=== PATIENT | female | born 1960 | race African-American/Black ===

== ENCOUNTER 2022-09-22 10:50 | Outpatient (REF) | payer OTHER, SELFPAY | END 2022-09-22 10:51 | disposition home or self-care (01) | LOC: HO.LAB 10:50 | PROVIDERS: PCP Internal Medicine; Visit Provider Urology | DX: C67.9 Malignant neoplasm of bladder, unspecified (principal); R31.29 Other microscopic hematuria; F17.200 Nicotine dependence, unspecified, uncomplicated | CPT/HCPCS: 81003 ==

== ENCOUNTER 2022-09-22 10:50 | Outpatient (AMB) | payer OTHER, SELFPAY ==
--- NOTE | 2022-09-22 03:21 | A.OFFVIS_ITS ---
Intake Intake Visit Reasons: Micro Hematuria Intake Note: NEW Patient presents today to established treatment for Microscopy Hematuria: Meds- None Allergies to Antibiotic- No Known Allergies Blood Thinner- Chlorthalidone Yarn Wrapper Required: No Accompanied by: Self / Same As Patient Allergies No Known Allergies Allergy (Verified 09/22/22 11:12) HPI HPI Comments History of Present Illness Details Mitzi is a 62-year-old female who presents today to the office to establish as a new patient for an evaluation of microscopic hematuria. 09/22/2022? Past medical history significant for diabetes, hypertension, and coronary artery disease. She reports h/o microscopic hematuria. She states she was sent to a specialist many years ago, but does not remember details. She denies burning sensation while urinating. She is tearful today in the office. She states her memory is not as good as when she was younger She is an occasional smoker. She does not remember when she started smoking cigarettes, but never smoked heavily. She states a pack would last her about a month.She did stop smoking about 2 weeks ago per her PCP recommendatons. Evaluation today--UA--leukocytes: negative; blood: 2+. Plan: Will send urine for cytology. CT urogram was ordered. Follow up office Cystoscopy. [facility] Medical History Anxiety disorder Diastolic dysfunction Elevated LFTs HTN (hypertension) Macroscopic hematuria Surgical History Hx of section Hx of colonoscopy Family History Father Coronary artery disease HTN (hypertension) Diabetes mellitus Colon polyp Mother HTN (hypertension) Social History Alcohol intake: current Alcohol intake frequency: holidays/special occasions only Patient Tobacco Use Status: Current someday Tobacco user Review of Systems Const All systems reviewed & are unremarkable except as noted in HPI and below Reports no additional complaints Eyes Reports no additional complaints ENT Reports no additional complaints Card Denies dyspnea Resp Denies cough and Denies dyspnea GI Reports no additional complaints Reports no additional complaints Musc Reports no additional complaints Skin/Breast Denies rash and Denies unusual bruising Neuro Reports no additional complaints Psych Reports no additional complaints Endo Reports no additional complaints Josh/Lymph Reports no additional complaints Aller/Immun Reports no additional complaints Physical Exam Const General: cooperative, healthy appearing and no acute distress Orientation/consciousness: patient oriented x3 HEENT Head: Yes normal to inspection, Yes normocephalic and Yes atraumatic Eyes Conjunctivae: conjunctivae normal Neck Neck: Yes normal visual inspection and Yes trachea midline Chest Chest palpation & inspection: normal inspection of the chest Resp Effort & Inspection: normal respiratory effort Cardio Rate: regular rate GI Inspection: Yes normal to inspection Skin General skin exam: no rashes or lesions noted Neuro General: patient oriented x3 Extrem General: No edema Psych Appearance: grossly normal Results AMB Urinalysis, Automated UA Leukoctes 0 Tran/uL Last Edit by SHAWN Antoine on 09/22/22 11:29 UA Nitrite Negative Last Edit by SHAWN Antoine on 09/22/22 11:29 UA Urobilinogen 0.2 mg/dL Last Edit by SHAWN Antoine on 09/22/22 11:2 9 UA Protein 0 mg/dL Last Edit by SHAWN Antoine on 09/22/22 11:29 UA pH 7.0 Last Edit by SHAWN Antoine on 09/22/22 11:29 2+ Gilson De Los Santos 09/22/22 11:29 UA Blood 80 Edni/uL Last Edit by SHAWN Antoine on 09/22/22 11:29 2+ Gilson De Los Santos 09/22/22 11:29 UA Specific [place] 1.010 Last Edit by SHAWN Antoine on 09/22/22 11: 29 UA Ketone Negative Last Edit by SHAWN Antoine on 09/22/22 11:29 UA Bilirubin 0 mg/dL Last Edit by SHAWN Antoine on 09/22/22 11:29 UA Glucose 0 mg/dL Last Edit by SHAWN Antoine on 09/22/22 11:29 Results Reviewed Results Reviewed: Laboratory Last Values Urine pH (Auto) 7.0 09/22/22 11:15 Specific [place] (Auto) 1.010 09/22/22 11:15 Urine Protein (Auto) 0 mg/dL 09/22/22 11:15 Glucose (UA)(Auto) 0 mg/dL 09/22/22 11:15 Urine Ketones (Auto) Negative 09/22/22 11:15 Urine Blood (Auto) 80 Edin/uL 09/22/22 11:15 Urine Nitrite (Auto) Negative 09/22/22 11:15 Urine Bilirubin (Auto) 0 mg/dL 09/22/22 11:15 Urine Urobilinogen (Auto) 0.2 mg/dL 09/22/22 11:15 Leukocyte Esterase (Auto) 0 Tran/uL 09/22/22 11:15 Assessment & Plan Assessment & Plan (1) Microscopic hematuria: Code(s): R31.29 - Other microscopic hematuria (2) Nicotine dependence: Code(s): F17.200 - Nicotine dependence, unspecified, uncomplicated Plan Will send urine for cytology. CT urogram was ordered. Follow up office Cystoscopy Orders: Orders AMB Urinalysis Automated Today Z13.9 - Encounter for screening, unspecified Patient Instructions: The patient had an opportunity to ask questions regarding treatment plan. All questions were answered. Imaging, Laboratory studies and physical exam results were discussed and reviewed in detail. No major barriers to understanding were identified. The patient expressed understanding and agreement with the above treatment plan.? ? ? The patient is aware they should contact our office by phone for worsening of their current condition or the appearance of new symptoms. Compliance is encouraged with any medications and followup testing that is ordered.? ? ? It is a privilege to be allowed the opportunity to participate in the urologic care of your patient. If you have any questions or concerns regarding treatment for the above conditions please do not hesitate to contact me. The office telephone contact is [phone].? ? ? This note is constructed in part using voice recognition software. While every effort has been made to ensure accuracy sign wirer errors may have been included.? ? ? Yours sincerely,? ? ? Nhi Ortiz MD? ? Coding Level of Care Code New Pt Level 4 (08089) Diagnoses Microscopic hematuria R31.29 Nicotine dependence F17.200
== END 2022-09-22 11:53 | disposition home or self-care (01) ==
PROVIDERS: PCP Internal Medicine; Visit Provider Urology
DX: R31.29 Other microscopic hematuria (principal); F17.200 Nicotine dependence, unspecified, uncomplicated; Z13.9 Encounter for screening, unspecified
CPT/HCPCS: 99204

== ENCOUNTER 2022-10-27 09:09 | Outpatient (AMB) | payer OTHER, SELFPAY ==
--- NOTE | 2022-10-27 09:10 | A.OFFVIS_ITS ---
Intake Intake Visit Reasons: 1m/cysto/CT/labs Intake Note: Patient presents today for a CYSTOSCOPY Procedure: CT hasn't been scheduled yet. Meds: None Allergies to Antibiotic: No Known Allergies Blood Thinner: None Urinalysis test cleared for Cysto Disposable Uro-G Cystoscope Cannula: Lot: [id number] Exp: 06/19/2024 Mental Health Director Required: No Accompanied by: Self / Same As Patient Allergies No Known Allergies Allergy (Verified 10/27/22 09:13) HPI HPI Comments History of Present Illness Details Mitzi is a 62-year-old female who presents today to the office for a follow-up. 10/27/2022? She is followed today for She was last seen by me on 09/22/2022 for microscopic hematuria. Urine for cytology, CT urogram was ordered and she?was advised to follow up office Cystoscopy at that time. Review of charts: Last visit: 09/22/2022? Past medical history significant for diabetes, hypertension, and coronary artery disease. She reports h/o microscopic hematuria. She states she was sent to a specialist many years ago, but does not remember details. She denies burning sensation while urinating. She is tearful today in the office. She states her memory is not as good as when she was younger She is an occasional smoker. She does not remember when she started smoking cigarettes, but never smoked heavily. She states a pack would last her about a month.She did stop smoking about 2 weeks ago per her PCP recommendatons.?? Evaluation today--UA--leukocytes: negative; blood: 2+. Plan: Will send urine for cytology. CT urogram was ordered. Follow up office Cystoscopy. 10/27/2022: Evaluation today?UA? 10/27/2022: Plan: [facility] Medical History Anxiety disorder Diastolic dysfunction Elevated LFTs HTN (hypertension) Macroscopic hematuria Surgical History Hx of colonoscopy Hx of section Family History Father Coronary artery disease HTN (hypertension) Diabetes mellitus Colon polyp Mother HTN (hypertension) Social History Alcohol intake: current Alcohol intake frequency: holidays/special occasions only Patient Tobacco Use Status: Current someday Tobacco user Office Procedures Cystoscopy Consent Discussed risk and benefit or proposed procedure with the patient. Information consent for procedure given to the patient. Discussed technical aspects, risks, benefits and alternatives in full. Addressed all of the patient's questions and concerns regarding the procedure. The patient demonstrated knowledge and understanding. They wish to proceed with this procedure. Preparation The patient was prepped in the usual manner. A nut sheller was present and in the room. Genitalia was prepped with betadine solution in a sterile manner. Lidocaine Jelly 2% was placed into the urethra and 16Fr flexible Olympus cystoscope was inserted into the meatus after adequate lubrication. [id number] DISPOSABLE SCOPE URO-G FLEXIBLE SCOPE Procedure code (CPT) selection complete Office Meds lidocaine HCl 2 % mucosal jelly in applicator Performing Provider: Nhi Ortiz MD [place] [place] [facility] Administered by: Nory Cervantes RN on 10/27/22 09:30 Dose Route Admin Location Dispensed Lot Number Expiration Date [place] Licensed Psychologist Manager 10 mL intra-urethral 20 mL naproxen 500 mg tablet Performing Provider: Nhi Ortiz MD Performing Location: [facility] [place] [facility] Administered by: Nory Cervantes RN on 10/27/22 09:30 Dose Route Admin Location Dispensed Lot Number Expiration Date NDC Licensed Psychologist Manager 500 mg PO 1 tab ciprofloxacin HCl 500 mg tablet Performing Provider: Nhi Ortiz MD Performing Location: [facility] [place] [facility] Administered by: Nory Cervantes RN on 10/27/22 09:30 Dose Route Admin Location Dispensed Lot Number Expiration Date [place] Licensed Psychologist Manager 500 mg PO 1 tab Results AMB Urinalysis, Automated UA Leukoctes 0 Tran/uL Last Edit by SHAWN Antoine on 10/27/22 09:26 UA Nitrite Negative Last Edit by Gilson De Los Santos Madelin on 10/27/22 09:26 UA Urobilinogen 0.2 mg/dL Last Edit by Gilson De Los Santos Madelin on 10/27/22 09:2 6 UA Protein 0 mg/dL Last Edit by Gilson De Los Santos Madelin on 10/27/22 09:26 UA pH 7.0 Last Edit by Gilson De Los Santos A on 10/27/22 09:26 UA Blood 25 Edin/uL Last Edit by Gilson De Los Santos [facility] on 10/27/22 09:26 1+ Gilson De Los Santos 10/27/22 09:26 UA Specific [place] 1.015 Last Edit by Gilson De Los Santos Madelin on 10/27/22 09: 26 UA Ketone Negative Last Edit by Gilson De Los Santos Madelin on 10/27/22 09:26 UA Bilirubin 0 mg/dL Last Edit by Gilson De Los Santos [facility] on 10/27/22 09:26 UA Glucose 0 mg/dL Last Edit by Gilson De Los Santos [facility] on 10/27/22 09:26 Results Reviewed Results Reviewed: Laboratory Last Values Urine pH (Auto) 7.0 10/27/22 09:21 Specific [place] (Auto) 1.015 10/27/22 09:21 Urine Protein (Auto) 0 mg/dL 10/27/22 09:21 Glucose (UA)(Auto) 0 mg/dL 10/27/22 09:21 Urine Ketones (Auto) Negative 10/27/22 09:21 Urine Blood (Auto) 25 Edin/uL 10/27/22 09:21 Urine Nitrite (Auto) Negative 10/27/22 09:21 Urine Bilirubin (Auto) 0 mg/dL 10/27/22 09:21 Urine Urobilinogen (Auto) 0.2 mg/dL 10/27/22 09:21 Leukocyte Esterase (Auto) 0 Tran/uL 10/27/22 09:21 Assessment & Plan Assessment & Plan Orders: Orders AMB Urinalysis Automated Today Z13.9 - Encounter for screening, unspecified AMB Cystoscopy Today R31.29 - Other microscopic hematuria Patient Instructions: The patient had an opportunity to ask questions regarding treatment plan. All questions were answered. Imaging, Laboratory studies and physical exam results were discussed and reviewed in detail. No major barriers to understanding were identified. The patient expressed understanding and agreement with the above treatment plan.? ? ? The patient is aware they should contact our office by phone for worsening of their current condition or the appearance of new symptoms. Compliance is encouraged with any medications and followup testing that is ordered.? ? ? It is a privilege to be allowed the opportunity to participate in the urologic care of your patient. If you have any questions or concerns regarding treatment for the above conditions please do not hesitate to contact me. The office telephone contact is [phone].? ? ? This note is constructed in part using voice recognition software. While every effort has been made to ensure accuracy dental technician metal errors may have been incl uded.? ? ? Yours sincerely,? ? ? Nhi Ortiz MD? Coding CPT Codes Cystoscopy - CPT: [id number] ([id number])
--- NOTE | 2022-10-27 09:21 | A.OFFVIS_ITS ---
Intake Intake Visit Reasons: 1m/cysto/CT/labs Allergies No Known Allergies Allergy (Verified 10/27/22 09:13) HPI HPI Comments History of Present Illness Details Mitzi is a 62-year-old female who presents today to the office for a follow-up. 10/27/2022? She is followed today for a cystoscopy procedure. She was last seen by me on 09/22/2022 for microscopic hematuria. Urine for cytology, CT urogram was ordered and she?was advised to follow up office Cystoscopy at that time. She has not had her CAT scan yet. She states that she has discontinued smoking cigarettes. She states that she has infrequent urinary leakage when she tries to hold the urine for too long, or occasionally with sneezing. 10/27/2022: Evaluation today?UA?Leukocyt es: negative; blood: 1 +. Cystoscopy procedure The patient was provided naproxen 500 mg, lidocaine 2 %, and ciprofloxacin 500 mg x 1 dose pre-procedure today. Consent was obtained to perform cystoscopy procedure. Cystoscopy findings: no suspicious bladder lesion found. Review of charts: Last visit: 09/22/2022? Past medical history significant for diabetes, hypertension, and coronary artery disease. She reports h/o microscopic hematuria. She states she was sent to a specialist many years ago, but does not remember details. She denies burning sensation while urinating. She is tearful today in the office. She states her memory is not as good as when she was younger She is an occasional smoker. She does not remember when she started smoking cigarettes, but never smoked heavily. She states a pack would last her about a month.She did stop smoking about 2 weeks ago per her PCP recommendatons.?? Evaluation today--UA--leukocytes: negative; blood: 2+. 10/27/2022: Plan: CT urogram is pending. 11/22/2022. urine for cytology. I will follow-up with the patient in the office after the imaging to review the results. PFSH Medical History Anxiety disorder Elevated LFTs Macroscopic hematuria Diastolic dysfunction HTN (hypertension) Surgical History Hx of colonoscopy Hx of section Family History Father Coronary artery disease HTN (hypertension) Diabetes mellitus Colon polyp Mother HTN (hypertension) Social History Alcohol intake: current Alcohol intake frequency: holidays/special occasions only Patient Tobacco Use Status: Current someday Tobacco user Review of Systems Const All systems reviewed & are unremarkable except as noted in HPI and below Reports no additional complaints Eyes Reports no additional complaints ENT Reports no additional complaints Card Denies dyspnea Resp Denies cough and Denies dyspnea GI Reports no additional complaints Reports no additional complaints Musc Reports no additional complaints Skin/Breast Denies rash and Denies unusual bruising Neuro Reports no additional complaints Psych Reports no additional complaints Endo Reports no additional complaints Josh/Lymph Reports no additional complaints Aller/Immun Reports no additional complaints Office Procedures Cystoscopy Consent Discussed risk and benefit or proposed procedure with the patient. Information consent for procedure given to the patient. Discussed technical aspects, risks, benefits and alternatives in full. Addressed all of the patient's questions and concerns regarding the procedure. The patient demonstrated knowledge and understanding. They wish to proceed with this procedure. Preparation The patient was prepped in the usual manner. A rigging slinger was present and in the room. Genitalia was prepped with betadine solution in a sterile manner. Lidocaine Jelly 2% was placed into the urethra and 16Fr flexible Olympus cystoscope was inserted into the meatus after adequate lubrication. Procedure Time out per protocol performed. Bladder Inspection Bladder Inspection: The bladder was inspected in its entirety with utilization retroflexion display ing: Tumor(s): none visualized Trabeculation: N/A Mucosal Erthema: N/A Orifices: normal shape and position Urethra: normal Cystoscopy findings: WNL, no suspicious bladder lesions visualized [id number] DISPOSABLE SCOPE URO-G FLEXIBLE SCOPE Procedure code (CPT) selection complete Office Meds lidocaine HCl 2 % mucosal jelly in applicator Performing Provider: Nhi Ortiz MD [place] [facility] [place] [facility] Administered by: Nory Cervantes RN on 10/27/22 09:30 Dose Route Admin Location Dispensed Lot Number Expiration Date [facility] [place] 2] Burner Tender 10 mL intra-urethral 20 mL naproxen 500 mg tablet Performing Provider: Nhi Ortiz MD [place] [facility] [place] [facility] Administered by: Nory Cervantes RN on 10/27/22 09:30 Dose Route Admin Location Dispensed Lot Number Expiration Date NDC Burner Tender 500 mg PO 1 tab ciprofloxacin HCl 500 mg tablet Performing Provider: Nhi Ortiz MD Performing [place] [facility] [facility] Administered by: Nory Cervantes RN on 10/27/22 09:30 Dose Route Admin Location Dispensed Lot Number Expiration Date NDC Burner Tender 500 mg PO 1 tab Results AMB Urinalysis, Automated UA Leukoctes 0 Tran/uL Last Edit by SHAWN Antoine on 10/27/22 09:26 UA Nitrite Negative Last Edit by Gilson De Los Santos [facility] on 10/27/22 09:26 UA Urobilinogen 0.2 mg/dL Last Edit by SHAWN Antoine on 10/27/22 09:2 6 UA Protein 0 mg/dL Last Edit by SHAWN Antoine on 10/27/22 09:26 UA pH 7.0 Last Edit by Gilson De Los Santos Madelin on 10/27/22 09:26 UA Blood 25 Edin/uL Last Edit by SHAWN Antoine on 10/27/22 09:26 1+ Gilson De Los Santos 10/27/22 09:26 UA Specific [place] 1.015 Last Edit by SHAWN Antoine on 10/27/22 09: 26 UA Ketone Negative Last Edit by SHAWN Antoine on 10/27/22 09:26 UA Bilirubin 0 mg/dL Last Edit by Gilson De Los Santos Madelin on 10/27/22 09:26 UA Glucose 0 mg/dL Last Edit by SHAWN Antoine on 10/27/22 09:26 Results Reviewed Results Reviewed: Laboratory Last Values Urine pH (Auto) 7.0 10/27/22 09:21 Specific [place] (Auto) 1.015 10/27/22 09:21 Urine Protein (Auto) 0 mg/dL 10/27/22 09:21 Glucose (UA)(Auto) 0 mg/dL 10/27/22 09:21 Urine Ketones (Auto) Negative 10/27/22 09:21 Urine Blood (Auto) 25 Edin/uL 10/27/22 09:21 Urine Nitrite (Auto) Negative 10/27/22 09:21 Urine Bilirubin (Auto) 0 mg/dL 10/27/22 09:21 Urine Urobilinogen (Auto) 0.2 mg/dL 10/27/22 09:21 Leukocyte Esterase (Auto) 0 Tran/uL 10/27/22 09:21 Assessment & Plan Assessment & Plan (1) Microscopic hematuria: Code(s): R31.29 - Other microscopic hematuria (2) Nicotine dependence: Code(s): F17.200 - Nicotine dependence, unspecified, uncomplicated Plan CT urogram is pending. 11/22/2022. I will follow-up with the patient in the office after the imaging to review the results. Orders: Orders AMB Urinalysis Automated Today Z13.9 - Encounter for screening, unspecified AMB Cystoscopy Today R31.29 - Other microscopic hematuria Blood Urea Nitrogen Today R31.29 - Other microscopic hematuria Creatinine Today R31.29 - Other microscopic hematuria Patient Instructions: The patient had an opportunity to ask questions regarding treatment plan. All questions were answered. Imaging, Laboratory studies and physical exam results were discussed and reviewed in detail. No major barriers to understanding were identified. The patient expressed understanding and agreement with the above treatment plan.? ? ? The patient is aware they should contact our office by phone for worsening of their current condition or the appearance of new symptoms. Compliance is encouraged with any medications and followup testing that is ordered.? ? ? It is a privilege to be allowed the opportunity to participate in the urologic care of your patient. If you have any questions or concerns regarding treatment for the above conditions please do not hesitate to contact me. The office telephone contact is [phone].? ? ? This note is constructed in part using voice recognition software. While every effort has been made to ensure accuracy division chief errors may have been included.? ? ? Yours sincerely,? ? ? Nhi Ortiz MD? Coding Level of Care Code Procedure Only Diagnoses Microscopic hematuria R31.29 Nicotine dependence F17.200 CPT Codes Cystoscopy - CPT: [id number] ([id number])
== END 2022-10-27 10:17 | disposition home or self-care (01) ==
PROVIDERS: PCP Internal Medicine; Visit Provider Urology
DX: R31.29 Other microscopic hematuria (principal); F17.200 Nicotine dependence, unspecified, uncomplicated; Z13.9 Encounter for screening, unspecified
CPT/HCPCS: 52000

== ENCOUNTER → 2022-10-27 09:09 | Outpatient (BNVA) | payer OTHER, SELFPAY | PROVIDERS: PCP Internal Medicine; Visit Provider Urology | DX: R31.29 Other microscopic hematuria (principal); F17.200 Nicotine dependence, unspecified, uncomplicated | CPT/HCPCS: 52000; 81003 ==

== ENCOUNTER 2022-10-27 16:55 | Outpatient (REF) | payer OTHER, SELFPAY ==
[2022-10-27 16:58] LABS: Urine Cytology See Pathology rpt
== END 2022-10-27 16:56 | disposition home or self-care (01) ==
LOC: HO.LNP 16:55
PROVIDERS: Visit Provider Urology
DX: R31.29 Other microscopic hematuria (principal)
CPT/HCPCS: 88112

== ENCOUNTER 2022-11-24 13:47 | Outpatient (REF) | payer OTHER, SELFPAY ==
--- NOTE | ~2022-11-24 | CT_ITS ---
EXAMINATION: CT UROGRAM WITHOUT AND WITH CONTRAST CLINICAL INFORMATION: Reason for Exam R31.29 - Other microscopic hematuria COMPARISON: Abdominal ultrasound and renal ultrasound 10/29/2013. TECHNIQUE: Noncontrast helical scanning was performed with submillimeter collimation through the abdomen and pelvis. Postcontrast helical scanning was then repeated with submillimeter collimation through the abdomen and pelvis in the pyelographic/urographic phase using split dose technique with 100 mL of Omnipaque 350 intravenous contrast. Sagittal and coronal 2-D reconstructions were obtained. This CT examination was performed using dose optimization techniques as appropriate, variously including the following: *Automated exposure control *Adjustment of mA and/or kV according to patient size (this includes techniques or standardized protocols for targeted exams where dose is matched to indication/reason for exam; i.e. extremities or head) *Use of iterative reconstruction technique DLP: 592 mGycm FINDINGS: KIDNEYS, URETERS, BLADDER: Specific attention was given to the kidneys, ureters, and bladder. The right kidney measures 11.0 cm in size and the left kidney measures 10.4 cm in size. NONCONTRAST: Punctate nonobstructing calculus in the lower pole left kidney 8.3 cm from posterolateral skin surface. POSTCONTRAST NEPHROGRAPHIC/UROGRAPHIC: Symmetric nephrograms. Tiny cortical hypodensities in the right kidney are too small to characterize but most likely cysts. No follow-up imaging is recommended. No suspicious renal mass. No hydronephrosis. Symmetric urinary excretion. No filling defects in the collecting system. The ureters appear normal. BLADDER: The bladder is decompressed. No discrete bladder calculus. No discrete bladder mass. PELVIC VISCERA: Unremarkable. OTHER: LUNG BASES: The visualized lung bases are unremarkable. LIVER, GALLBLADDER, AND BILIARY TREE: The liver is normal in size, shape, and attenuation. No focal hepatic lesion or biliary ductal dilatation is present. The gallbladder is unremarkable with no evidence of radiopaque gallstones, gallbladder wall thickening, or obvious pericholecystic inflammatory changes. PANCREAS: Small hypodense lesion in the anterior head of the pancreas measures 9 x 8 mm. No definite truncation to the pancreatic duct. SPLEEN: Unremarkable. ADRENAL GLANDS: No adrenal mass. GASTROINTESTINAL TRACT: The small bowel is normal in caliber. The appendix is normal. Mild colonic diverticulosis. No inflammatory changes. No mesenteric mass or fluid. ABDOMINAL WALL: No significant hernia is appreciated. LYMPH NODES: No lymphadenopathy. VASCULAR: No aortic aneurysm. OSSEOUS STRUCTURES: Mild degenerative changes in the spine. CT/CT urogram IMPRESSION: Punctate nonobstructing calculus lower left kidney. No hydroureteronephrosis. Normal CT urogram. No suspicious renal mass. The bladder is decompressed and not well evaluated. Grossly unremarkable. Small subcentimeter hypodense lesion in the anterior head of the pancreas. Recommend follow-up in one year using contrast-enhanced MRI or CT abdomen pancreas protocol.
[2022-11-24 14:38] LABS: Blood Urea Nitrogen 18 mg/dL (9-16); Estimated Glomerular Filt Rate > 60
[2022-11-24] MEDS: iohexoL 350 MG/ML 100 ML INFUS..BTL 85 ML IV (15:51)
== END 2022-11-24 13:48 | disposition home or self-care (01) ==
LOC: HO.CT 13:47
PROVIDERS: PCP Internal Medicine; Visit Provider Urology
DX: R31.29 Other microscopic hematuria (principal)
CPT/HCPCS: 36415; 74178; 82565; 84520; Q9967

== ENCOUNTER 2022-12-09 15:18 | Outpatient (AMB) | payer OTHER, SELFPAY ==
--- NOTE | 2022-12-09 15:22 | MHC.OFFVIS ---
Intake Intake Visit Reasons: 6w/CT Intake Note: Patient presents today for a follow-up on CT Scan results: CT completed 11/24/2022 Meds- None Allergies to Antibiotic- No Known Allergies Blood Thinner- None Uable to void Referral Management Liaison Required: No Accompanied by: Self / Same As Patient Allergies No Known Allergies Allergy (Verified 10/27/22 09:13) HPI HPI Comments History of Present Illness Details Mitzi is a 62-year-old female who presents today to the office for a follow-up. 12/09/2022? She is followed today for CT results. She was initially evaluated for referral for microscopic hematuria on 09/22/22. She was last seen by me on 10/27/2022 for a Cystoscopy procedure. I reviewed the CT results from 11/24/2022 which revealed that there is a punctuate stone in the left kidney, and a sub cm lesion in the pancreas. Review of charts: Last visit: 10/27/2022? She is followed today for a cystoscopy procedure. Urine was sent for cytology during that time. She was last seen by me on 09/22/2022 for microscopic hematuria. She states that she has discontinued smoking cigarettes. She states that she has infrequent urinary leakage when she tries to hold the urine for too long, or occasionally with sneezing. 10/27/2022: Cystoscopy procedure Cystoscopy findings: no suspicious bladder lesion found. 12/09/2022: Plan: Refer to GI. Follow-up in one year to monitor microscopic hematuria. PFSH Medical History Anxiety disorder Elevated LFTs Macroscopic hematuria Diastolic dysfunction HTN (hypertension) Surgical History Hx of colonoscopy Hx of section Family History Father Coronary artery disease HTN (hypertension) Diabetes mellitus Colon polyp Mother HTN (hypertension) Social History Alcohol intake: current Alcohol intake frequency: holidays/special occasions only Patient Tobacco Use Status: Current someday Tobacco user Review of Systems Const All systems reviewed & are unremarkable except as noted in HPI and below Reports no additional complaints Eyes Reports no additional complaints ENT Reports no additional complaints Card Denies dyspnea Resp Denies cough and Denies dyspnea GI Reports no additional complaints Reports no additional complaints Musc Reports no additional complaints Skin/Breast Denies rash and Denies unusual bruising Neuro Reports no additional complaints Psych Reports no additional complaints Endo Reports no additional complaints Josh/Lymph Reports no additional complaints Aller/Immun Reports no additional complaints Results Reviewed Results Reviewed: Date of Service: 11/24/22 EXAMINATION: CT UROGRAM WITHOUT AND WITH CONTRAST CLINICAL INFORMATION:? Reason for Exam R31.29 - Other microscopic hematuria COMPARISON:? Abdominal ultrasound and renal ultrasound 10/29/2013.?? FINDINGS:? KIDNEYS, URETERS, BLADDER: Specific attention was given to the kidneys, ureters, and bladder. The right kidney measures 11.0 cm in size and the left kidney measures 10.4 cm in size.?? NONCONTRAST: Punctate nonobstructing calculus in the lower pole left kidney 8.3 cm from posterolateral skin surface. POSTCONTRAST NEPHROGRAPHIC/UROGRAPHIC: Symmetric nephrograms. Tiny cortical hypodensities in the right kidney are too small to characterize but most likely cysts. No follow-up imaging is recommended. No suspicious renal mass. No hydronephrosis. Symmetric urinary excretion. No filling defects in the collecting system. The ureters appear normal. BLADDER: The bladder is decompressed. No discrete bladder calculus. No discrete bladder mass. PELVIC VISCERA: Unremarkable. OTHER: LUNG BASES: The visualized lung bases are unremarkable.?? LIVER, GALLBLADDER, AND BILIARY TREE: The liver is normal in size, shape, and attenuation. No focal hepatic lesion or biliary ductal dilatation is present. The gallbladder is unremarkable with no evidence of radiopaque gallstones, gallbladder wall thickening, or obvious pericholecystic inflammatory changes.?? PANCREAS: Small hypodense lesion in the anterior head of the pancreas measures 9 x 8 mm. No definite truncation to the pancreatic duct.?? SPLEEN: Unremarkable.?? ADRENAL GLANDS: No adrenal mass.?? GASTROINTESTINAL TRACT: The small bowel is normal in caliber. The appendix is normal. Mild colonic diverticulosis. No inflammatory changes. No mesenteric mass or fluid.?? ABDOMINAL WALL: No significant hernia is appreciated.?? LYMPH NODES: No lymphadenopathy. VASCULAR: No aortic aneurysm. OSSEOUS STRUCTURES: Mild degenerative changes in the spine.?? IMPRESSION:? Punctate nonobstructing calculus lower left kidney. No hydroureteronephrosis. Assessment & Plan Assessment & Plan (1) Microscopic hematuria: Code(s): R31.29 - Other microscopic hematuria (2) Nicotine dependence: Code(s): F17.200 - Nicotine dependence, unspecified, uncomplicated (3) Pancreatic lesion: Code(s): K86.9 - Disease of pancreas, unspecified Plan Follow-up in one year to monitor microscopic hematuria. Orders: Referrals Gastroenterology Referral K86.9 - Disease of pancreas, unspecified Patient Instructions: The patient had an opportunity to ask questions regarding treatment plan. All questions were answered. Imaging, Laboratory studies and physical exam results were discussed and reviewed in detail. No major barriers to understanding were identified. The patient expressed understanding and agreement with the above treatment plan. The patient is aware they should contact our office by phone for worsening of their current condition or the appearance of new symptoms. Compliance is encouraged with any medications and followup testing that is ordered. It is a privilege to be allowed the opportunity to participate in the urologic care of your patient. If you have any questions or concerns regarding treatment for the above conditions please do not hesitate to contact me. The office telephone contact is [phone]. This note is constructed in part using voice recognition software. While every effort has been made to ensure accuracy dairy equipment mechanic errors may have been included. Yours sincerely, Nhi Ortiz MD Coding Level of Care Code Est Pt Level 4 (36865) Diagnoses Microscopic hematuria R31.29 Nicotine dependence F17.200 Pancreatic lesion K86.9
== END 2022-12-09 16:06 | disposition home or self-care (01) ==
PROVIDERS: PCP Internal Medicine; Visit Provider Urology
DX: R31.29 Other microscopic hematuria (principal); F17.200 Nicotine dependence, unspecified, uncomplicated; K86.9 Disease of pancreas, unspecified
CPT/HCPCS: 99214

== ENCOUNTER → 2022-12-09 15:18 | Outpatient (BNVA) | payer OTHER, SELFPAY | PROVIDERS: PCP Internal Medicine; Visit Provider Urology ==